=== PATIENT | male | born 1955 | race Caucasian/White ===

== ENCOUNTER 2021-03-31 22:54 | Inpatient (IN) ==
[2021-04-01 01:23] LABS: Basophils # 0.1 10*3/uL (0.0-0.2); Basophils % 0.6 % (0.0-0.8); Eosinophils # 0.2 10*3/uL (0.0-0.87); Eosinophils % 2.3 % (0.00-10.9); Hematocrit 25.2 VOL% (42.0-52.0); Immature Granulocytes % 0.6 %; Immature Granulocytes Absolute 0.05 #; Lymphocytes # 1.7 10*3/uL (1.4-4.0); Mean Corpuscular HGB Conc 31.7 GM/DL (32-36); Mean Corpuscular Volume 85.1 FL (87-102); Mean Platelet Volume 10.3 FL (9.6-12.0); Monocytes % 6.3 % (1.7-12.7); Neutrophils % 69.2 % (38.7-73.9); Platelet Count 181 T/CUMM (130-400); Red Blood Count 2.96 MC/CUMM (3.8-5.5); Red Cell Distribution Width 14.1 % (9.3-17.3); White Blood Count 8.2 T/CUMM (4-12)
[2021-04-01 01:44] LABS: PT Patient Result 11.3 SECS (10.5-12.0)
[2021-04-01 02:49] LABS: Alanine Aminotransferase 132 U/L (16-61); Albumin 2.5 G/DL (3.4-5.0); Alkaline Phosphatase 211 U/L (45-117); Aspartate Amino Transferase 588 U/L (0-37); Bilirubin,Total < 0.39 MG/DL (0.20-1.00); Blood Urea Nitrogen 41 MG/DL (7-18); Calcium 7.7 MG/DL (8.5-10.1); Carbon Dioxide 21 MMOL/L (21-32); Estimated Glom Filtration Rate 16 ML/MIN; Glucose 54 MG/DL (74-106); Sodium 136 MMOL/L (136-145); Total Protein 5.8 G/DL (6.4-8.2)
[2021-04-01 02:50] LABS: CKMB % 1.2 %
[2021-04-01] MEDS ORDERED: DEXTROSE 50% 25 GM/50 ML VIAL IV STA (02:56)
[2021-04-01] MEDS ORDERED: SODIUM CHLORIDE 0.9% 1,000 ML IV STA (03:12)
[2021-04-01] MEDS ORDERED: DEXTROSE 50% 25 GM/50 ML VIAL IV PRN ×2 (05:09)
[2021-04-01] MEDS ORDERED: ONDANSETRON 4 MG/2 ML VIAL IV PRN (05:09)
[2021-04-01] MEDS ORDERED: GLUCAGON 1 MG VIAL IM PRN (05:09)
[2021-04-01 05:29] LABS: Amorphous Crystals,Urine Occasional /HPF (Few); Bilirubin,Urine Negative (Negative); Blood, Urine Large mg/dL (Negative); Glucose,Urine (UA) Negative (Negative); Hyaline Casts,Urine 6 /LPF (0-3); Ketones,Urine Negative (Negative); Mucus,Urine Occasional /LPF (Occasional); Nitrite,Urine Negative (Negative); Protein,Urine 100 MG/DL; Squamous Epithelial Cell,Urine Occasional /HPF (0-10); Urine Appearance Slightly Hazy (Clear); Urine Color Yellow (Yellow); Urine Specific Gravity 1.012 (1.001-1.035); Urine Urobilinogen < 2.0 EU/DL (0.2-1.0)
[2021-04-01 05:43] LABS: Barbiturates Screen,Urine Negative (Negative); Benzodiazepines Screen,Urine Negative (Negative); Cannabinoid Screen,Urine Negative (Negative); Opiate Screen,Urine Positive (Negative); Phencyclidine Screen,Urine Negative (Negative)
[2021-04-01] MEDS: HEPARIN 5,000 UNIT/1 ML VIAL SUBCUT SCH ×2 (06:47→17:30)
[2021-04-01] MEDS: INSULIN REGULAR 100 UNIT/ML SUBCUT SCH ×4 (08:09→20:59)
[2021-04-01] MEDS: PANTOPRAZOLE 40 MG TABLET PO SCH (09:56)
[2021-04-01] MEDS: TAMSULOSIN 0.4 MG CAPSULE PO SCH (09:56)
[2021-04-01 13:37] LABS: Alanine Aminotransferase 138 U/L (16-61); Albumin 2.3 G/DL (3.4-5.0); Alkaline Phosphatase 216 U/L (45-117); Aspartate Amino Transferase 524 U/L (0-37); Bilirubin,Total < 0.39 MG/DL (0.20-1.00); Blood Urea Nitrogen 37 MG/DL (7-18); Calcium 7.8 MG/DL (8.5-10.1); Carbon Dioxide 20 MMOL/L (21-32); Estimated Glom Filtration Rate 18 ML/MIN; Glucose 152 MG/DL (74-106); Potassium 5.8 MMOL/L (3.5-5.1); Sodium 136 MMOL/L (136-145); Total Protein 6.6 G/DL (6.4-8.2)
[2021-04-01] MEDS: SODIUM BICARB INJ 100 MEQ in STERILE WATER INJ 1,000 ML IV SCH (15:12)
[2021-04-01] MEDS ORDERED: SKIN HEALING OINT (AQUAPHOR) 50 GM TUBE TOP PRN (16:03)
[2021-04-02] MEDS: SODIUM BICARB INJ 100 MEQ in STERILE WATER INJ 1,000 ML IV SCH ×3 (01:02→21:08)
[2021-04-02] MEDS: HEPARIN 5,000 UNIT/1 ML VIAL SUBCUT SCH ×2 (04:56→16:50)
[2021-04-02 05:25] LABS: Basophils # 0.1 10*3/uL (0.0-0.2); Basophils % 0.7 % (0.0-0.8); Eosinophils # 0.3 10*3/uL (0.0-0.87); Eosinophils % 4.2 % (0.00-10.9); Hematocrit 28.6 VOL% (42.0-52.0); Immature Granulocytes % 0.1 %; Immature Granulocytes Absolute 0.01 #; Lymphocytes % 26.3 % (21.2-54.2); Mean Corpuscular HGB Conc 31.5 GM/DL (32-36); Mean Corpuscular Volume 84.1 FL (87-102); Mean Platelet Volume 10.9 FL (9.6-12.0); Monocytes % 5.6 % (1.7-12.7); Neutrophils % 63.1 % (38.7-73.9); Platelet Count 236 T/CUMM (130-400); Red Cell Distribution Width 13.9 % (9.3-17.3); White Blood Count 7.7 T/CUMM (4-12)
[2021-04-02 06:06] LABS: Albumin 2.4 G/DL (3.4-5.0); Bilirubin,Total 0.4 MG/DL (0.20-1.00); Calcium 7.9 MG/DL (8.5-10.1); Osmolality,Calculated 278.1 MOS/KG (273-304); Total Protein 6.7 G/DL (6.4-8.2)
[2021-04-02] MEDS: TAMSULOSIN 0.4 MG CAPSULE PO SCH (08:17)
[2021-04-02] MEDS: INSULIN REGULAR 100 UNIT/ML SUBCUT SCH ×4 (08:17→21:06)
[2021-04-02] MEDS: PANTOPRAZOLE 40 MG TABLET PO SCH (08:17)
[2021-04-02] MEDS ORDERED: hydrALAZINE 20 MG/1 ML VIAL IV PRN (10:13)
[2021-04-02] MEDS: METOPROLOL TARTRATE 25 MG TABLET PO SCH ×2 (10:59→21:06)
[2021-04-03] MEDS: HEPARIN 5,000 UNIT/1 ML VIAL SUBCUT SCH (05:17)
[2021-04-03 07:15] LABS: Albumin 2.4 G/DL (3.4-5.0); Bilirubin,Total 0.4 MG/DL (0.20-1.00); Calcium 8.3 MG/DL (8.5-10.1); Osmolality,Calculated 284.5 MOS/KG (273-304); Potassium 4.4 MMOL/L (3.5-5.1); Total Protein 6.8 G/DL (6.4-8.2)
[2021-04-03] MEDS: PANTOPRAZOLE 40 MG TABLET PO SCH (09:00)
[2021-04-03] MEDS: METOPROLOL TARTRATE 25 MG TABLET PO SCH (09:00)
[2021-04-03] MEDS: TAMSULOSIN 0.4 MG CAPSULE PO SCH (09:00)
[2021-04-03] MEDS: INSULIN REGULAR 100 UNIT/ML SUBCUT SCH (09:00)
[2021-04-03] MEDS: SODIUM BICARB INJ 100 MEQ in STERILE WATER INJ 1,000 ML IV SCH (10:32)
[2021-04-03 11:50] VITALS: BP 164/64
== END 2021-04-03 11:40 | disposition home or self-care (01) | DRG 639 ==
LOC: EDUNIT# → EDBD → N.ED 22:54 → N.EDINP 04-01 05:10 → N.3E 04-01 07:24
PROVIDERS: ADMIT Internal Medicine; ATTEND Internal Medicine

== ENCOUNTER 2021-05-29 18:55 | Inpatient (IN) ==
[~2021-05-29 18:55] MED LIST: FUROSEMIDE 40 MG/4 ML VIAL IV ONE
[2021-05-29] MEDS ORDERED: methylPREDNISolone SOD SUC 125 MG/2 ML VIAL IV STA (20:54)
[2021-05-29] MEDS ORDERED: AZITHROMYCIN INJ 500 MG in SODIUM CHLORIDE 0.9% 250 ML IV STA (20:54)
[2021-05-29] MEDS ORDERED: ONDANSETRON 4 MG/2 ML VIAL IV STA (20:54)
[2021-05-29] MEDS ORDERED: ALBUTEROL NEB SOLN 5 MG/ML 20 ML/BOTTLE CONT NEB SCH (21:00)
[2021-05-29 21:19] LABS: Basophils # 0.1 10*3/uL (0.0-0.2); Basophils % 0.4 % (0.0-0.8); Eosinophils # 0.1 10*3/uL (0.0-0.87); Eosinophils % 0.5 % (0.00-10.9); Hemoglobin 7.6 GM/DL (14.0-18.0); Immature Granulocytes % 0.4 %; Immature Granulocytes Absolute 0.04 #; Lymphocytes # 1.6 10*3/uL (1.4-4.0); Lymphocytes % 14.4 % (21.2-54.2); Mean Corpuscular HGB Conc 31.7 GM/DL (32-36); Mean Corpuscular Volume 74.8 FL (87-102); Mean Platelet Volume 9.9 FL (9.6-12.0); Monocytes % 5.7 % (1.7-12.7); Neutrophils % 78.6 % (38.7-73.9); Platelet Count 320 T/CUMM (130-400); Red Blood Count 3.21 MC/CUMM (3.8-5.5); Red Cell Distribution Width 15.6 % (9.3-17.3); White Blood Count 11.4 T/CUMM (4-12)
[2021-05-29 21:33] LABS: INR 1.1; PT Patient Result 12.4 SECS (10.5-12.0)
[2021-05-29 21:45] LABS: Albumin 2.3 G/DL (3.4-5.0); Bilirubin,Total 0.5 MG/DL (0.20-1.00); Calcium 8.2 MG/DL (8.5-10.1); Osmolality,Calculated 278.7 MOS/KG (273-304); Potassium 3.5 MMOL/L (3.5-5.1); Total Protein 7.3 G/DL (6.4-8.2)
[2021-05-29] MEDS ORDERED: FUROSEMIDE 40 MG/4 ML VIAL IV STA (22:08)
[2021-05-29] MEDS ORDERED: ZALEPLON 5 MG CAPSULE PO PRN (22:27)
[2021-05-29] MEDS ORDERED: NICOTINE 21 MG/24 HR PATCH TRANSDERM PRN (22:27)
[2021-05-29] MEDS ORDERED: diphenhydrAMINE CAP 25 MG CAPSULE PO PRN (22:27)
[2021-05-29] MEDS ORDERED: DEXTROSE 50% 25 GM/50 ML VIAL IV PRN ×2 (22:27)
[2021-05-29] MEDS ORDERED: ONDANSETRON 4 MG/2 ML VIAL IV PRN (22:27)
[2021-05-29] MEDS ORDERED: hydrALAZINE 20 MG/1 ML VIAL IV PRN (22:27)
[2021-05-29] MEDS ORDERED: guaiFENesin/DM ER 600-30 MG TABLET PO PRN (22:27)
[2021-05-29] MEDS ORDERED: GLUCAGON 1 MG VIAL IM PRN ×2 (22:27)
[2021-05-30] MEDS ORDERED: LEVOFLOXACIN INJ 750 MG/150 ML PREMIX IV SCH (04:00)
[2021-05-30] MEDS ORDERED: FUROSEMIDE 40 MG/4 ML VIAL IV ONE (06:00)
[2021-05-30 06:03] LABS: Basophils % 0.1 % (0.0-0.8); Hemoglobin 7.4 GM/DL (14.0-18.0); Immature Granulocytes % 0.7 %; Immature Granulocytes Absolute 0.06 #; Lymphocytes # 0.2 10*3/uL (1.4-4.0); Lymphocytes % 2.4 % (21.2-54.2); Mean Corpuscular HGB Conc 30.8 GM/DL (32-36); Mean Corpuscular Volume 77.2 FL (87-102); Mean Platelet Volume 10.1 FL (9.6-12.0); Monocytes % 0.5 % (1.7-12.7); Neutrophils % 96.3 % (38.7-73.9); Platelet Count 332 T/CUMM (130-400); Red Blood Count 3.11 MC/CUMM (3.8-5.5); Red Cell Distribution Width 15.6 % (9.3-17.3); White Blood Count 9.2 T/CUMM (4-12)
[2021-05-30] MEDS: LEVOFLOXACIN INJ 750 MG/150 ML PREMIX IV SCH ×2 (06:04→06:19)
[2021-05-30 06:23] LABS: Hypochromasia 1+; Lymphocytes 4 % (20-55); Microcytosis 1+; Platelet Estimate Adequate; Segmented Neutrophils 96 % (50-85); Total Cells Counted 100
[2021-05-30 06:29] LABS: Albumin 2.2 G/DL (3.4-5.0); Bilirubin,Total 0.4 MG/DL (0.20-1.00); Calcium 8.5 MG/DL (8.5-10.1); Osmolality,Calculated 288.1 MOS/KG (273-304); Potassium 4.3 MMOL/L (3.5-5.1); Total Protein 7.2 G/DL (6.4-8.2)
[2021-05-30] MEDS ORDERED: SODIUM CHLORIDE 0.9% 1,000 ML IV PRN (08:41)
[2021-05-30] MEDS ORDERED: amLODIPine 5 MG TABLET PO SCH (09:00)
[2021-05-30] MEDS: VANCOMYCIN INJ 1,250 MG in SODIUM CHLORIDE 0.9% 250 ML IV SCH (11:24)
[2021-05-30] MEDS: NEBIVOLOL 10 MG TABLET PO SCH (11:24)
[2021-05-30] MEDS: DOCUSATE SODIUM 100 MG CAPSULE PO SCH ×2 (11:24→20:11)
[2021-05-30] MEDS: INSULIN LISPRO 100 UNIT/ML SUBCUT SCH ×4 (11:30→20:46)
[2021-05-30] MEDS ORDERED: amLODIPine 5 MG TABLET PO ONE (12:18)
[2021-05-30] MEDS: ALBUTEROL/IPRATROPIUM 3 ML NEB RESP TX SCH ×3 (14:44→19:35)
[2021-05-30 15:16] LABS: Hematocrit 23.9 VOL% (42.0-52.0); Hemoglobin 7.5 GM/DL (14.0-18.0)
[2021-05-30] MEDS: FUROSEMIDE 40 MG/4 ML VIAL IV SCH (15:32)
[2021-05-30] MEDS: INSULIN NPH/REGULAR 70/30 100 UNIT/ML SUBCUT SCH (18:16)
[2021-05-30 22:52] LABS: Hematocrit 23.7 VOL% (42.0-52.0); Hemoglobin 7.4 GM/DL (14.0-18.0)
[2021-05-31] MEDS: ALBUTEROL/IPRATROPIUM 3 ML NEB RESP TX SCH ×3 (01:31→07:40)
[2021-05-31] MEDS: oxyCODONE IR 5 MG TABLET PO PRN ×2 (03:53→10:31)
[2021-05-31 05:37] LABS: Basophils % 0.4 % (0.0-0.8); Eosinophils % 0.4 % (0.00-10.9); Hematocrit 26.6 VOL% (42.0-52.0); Hemoglobin 8.3 GM/DL (14.0-18.0); Immature Granulocytes % 0.5 %; Immature Granulocytes Absolute 0.05 #; Lymphocytes # 1.7 10*3/uL (1.4-4.0); Lymphocytes % 15.2 % (21.2-54.2); Mean Corpuscular HGB Conc 31.2 GM/DL (32-36); Mean Corpuscular Volume 76.7 FL (87-102); Mean Platelet Volume 9.8 FL (9.6-12.0); Monocytes % 4.9 % (1.7-12.7); Neutrophils % 78.6 % (38.7-73.9); Platelet Count 332 T/CUMM (130-400); Red Blood Count 3.47 MC/CUMM (3.8-5.5); Red Cell Distribution Width 15.8 % (9.3-17.3)
[2021-05-31 05:48] LABS: Calcium 8.5 MG/DL (8.5-10.1); Osmolality,Calculated 286.8 MOS/KG (273-304); Potassium 3.5 MMOL/L (3.5-5.1)
[2021-05-31 05:52] LABS: Risk Ratio 2.75; VLDL Cholesterol 19.4 MG/DL
[2021-05-31] MEDS ORDERED: ASCORBIC ACID 500 MG TABLET PO SCH (09:00)
[2021-05-31] MEDS ORDERED: DOXAZOSIN 1 MG TABLET PO SCH (09:00)
[2021-05-31] MEDS ORDERED: gemfibroziL 600 MG TABLET PO SCH (09:00)
[2021-05-31] MEDS ORDERED: amLODIPine 10 MG TABLET PO SCH (09:00)
[2021-05-31] MEDS: NEBIVOLOL 10 MG TABLET PO SCH (09:24)
[2021-05-31] MEDS: DOCUSATE SODIUM 100 MG CAPSULE PO SCH (09:24)
[2021-05-31] MEDS: INSULIN NPH/REGULAR 70/30 100 UNIT/ML SUBCUT SCH (09:25)
[2021-05-31] MEDS: INSULIN LISPRO 100 UNIT/ML SUBCUT SCH ×2 (09:25→12:48)
[2021-05-31] MEDS: FUROSEMIDE 40 MG/4 ML VIAL IV SCH (09:27)
[2021-05-31] MEDS: VANCOMYCIN INJ 1,250 MG in SODIUM CHLORIDE 0.9% 250 ML IV SCH (09:28)
[2021-05-31 12:05] VITALS: BP 151/76
[2021-06-01] MEDS ORDERED: FUROSEMIDE 40 MG TABLET PO SCH (09:00)
== END 2021-05-31 12:47 | disposition home health service (06) | DRG 291 ==
LOC: N.ED 18:55 → N.EDINP 22:27 → N.TELEN 05-30 07:22
PROVIDERS: ADMIT Internal Medicine; ATTEND Internal Medicine